=== PATIENT | female | born 1980 | race Hispanic/Latino ===

== ENCOUNTER 2016-08-03 02:42 | Inpatient (IN) | payer OTHER ==
[~2016-08-03] VITALS: Ht 172.7 cm; Wt 121.6 kg
--- NOTE | 2016-08-03 13:13 | Admission Core Measures ---
Admission Lab Results I reviewed the following labs: Laboratory Tests 08/03 1015 Urines Urine Test NEGATIVE Admission Meds I reviewed the following Meds: Current Medications Sig/Cori Start time Last Medication Dose Stop Time Status Admin Cefazolin Sodium 2,000 MG ONCE 08/03 0000 NR (Kefzol-Ancef Inj) 08/03 2358 Dexamethasone 10 MG ONCE 08/03 0000 NR (Decadron) 08/03 2358 Heparin Sodium 5,000 UNIT ONCE 08/03 0000 NR (Porcine) 08/03 2358 Acute Coronary Syndrome Inclusion Criteria ACS Diagnosis No Inpatient Core Measures LDL Reminder: If No, please order W/I first 24hr of stay Congestive Heart Failure Inclusion Criteria CHF Diagnosis No Cerebrovascular accident Inclusion Criteria CVA/TIA Diagnosis No Inpatient Core Measures Bedside Swallow Eval Reminder: If BSE failed, place ST order Antithrombotic Reminder: Order Antithrombotic Medication by end of day 2 Antithrombotic Reminder: Document Reason Antithrombotic Not ordered by end of day 2 AFIB/Flutter Reminder: If Present, add to problem list AFIB/Flutter Reminder: Order Anticoag Medication for pts with AFIB/Flutter Atherosclerosis Reminder: If Present, add to problem list LDL Reminder: If No, please order W/I first 24hr of stay PT Order Reminder: If No, please order Venous thromboembolism Inpatient Core Measures VTE Risk Factors: Obesity, Surgery [facility] prophylaxis d/t No contraindications No VTE Pharm Prophylaxis d/t No contraindications Inclusion Criteria - Per Current guidelines, there needs to be overlap - treatment for the first 5 days of Warfarin therapy. - Parenteral Anticoagulation (IV or SC) needs to be - given along with Warfarin therapy. VTE Diagnosis No VTE Type NONE VTE Confirmed by (Test) NONE Problem List As ranked by this Provider includes Assessment & Plan 1. S/P laparoscopic sleeve gastrectomy
[2016-08-03] MEDS ORDERED: PROTONIX40 M3 PO (14:40)
[2016-08-03] MEDS ORDERED: HYCET 7.5 MG-3473 ML PO (14:40)
--- NOTE | 2016-08-03 14:44 | Patient Discharge Instructions ---
Discharge Instructions General Discharge Information You were seen/treated for: Morbid obesity You had these procedures: Laparoscopic sleeve gastrectomy Watch for these problems: Significantly increased pain, nausea, or temperatures over 101 Increased redness or drainage from around the incisions Chest pain or difficulty breathing No bath, but you may shower: Yes Other wound care: When you get home he may remove dressings leaving white strips intact until seen by your surgeon Shower regularly and pat dry Special Instructions: See preprinted information booklet Diet Recommended Diet: Bariatric Activity Activity Self Limited: Yes Pounds, do NOT lift more than: 10 Other activity limits: Do not drive or operate heavy machinery until seen by your surgeon and off all pain medications Acute Coronary Syndrome Inclusion Criteria At DC or during hospital stay patient has or had the following: ACS DIAGNOSIS No Discharge Core Measures Meds if any: Prescribed or Continued at Discharge Meds if any: NOT Prescribed or Continued at Discharge Congestive Heart Failure Inclusion Criteria At DC or during hospital stay patient has or had the following: CHF DIAGNOSIS No Discharge Core Measures Meds if any: Prescribed or Continued at Discharge Meds if any: NOT Prescribed or Continued at Discharge Cerebrovascular accident Inclusion Criteria At DC or during hospital stay patient has or had the following: CVA/TIA Diagnosis No Discharge Core Measures Meds if any: Prescribed or Continued at Discharge Meds if any: NOT Prescribed or Continued at Discharge Venous thromboembolism Inclusion Criteria VTE Diagnosis No VTE Type NONE VTE Confirmed by (Test) NONE Discharge Core Measures - Per Current guidelines, there needs to be overlap - treatment for the first 5 days of Warfarin therapy. - If discharged on Warfarin prior to 5 days of - overlap therapy, the patient will need to be - assessed for post discharge needs including - *Post discharge parental anticoagulation - *Warfarin and/or parental anticoagulation education - *Follow up date to check INR post discharge At least 5 days overlap therapy as Inpatient No Meds if any: Prescribed or Continued at Discharge Note: Overlap Therapy is Warfarin and Anticoagulant Meds if any: NOT Prescribed or Continued at Discharge
--- NOTE | 2016-08-03 14:46 | Surg Short-stay <48hrs Dis Sum ---
Visit Information Visit Dates Admission Date: 08/03/16 Discharge Date: 08/05/16 Surgical Short Stay DC Summary Admission Diagnosis: Morbid obesity Final Diagnosis: Same Procedure(s): Laparoscopic sleeve gastrectomy Summary/Significant Findings: The patient was admitted on 08/03/2016. Later that day she was brought to the operating theater and underwent a laparoscopic sleeve gastrectomy. Postoperatively the patient's pain was under adequate control and she she tolerated a stage I diet without nausea. The patient was discharged with an uneventful hospital course. Condition at Discharge: Stable Discharge Disposition: home or self care Discharge instructions provided to patient/family: Yes Post discharge follow-up plan: Call the office to be seen in one week
--- NOTE | 2016-08-03 16:11 | Operative Report ---
Operative/Inv Procedure Report Surgery Date: 08/03/16 Name of Procedure: Laparoscopic Sleeve Gastrectomy Pre-Operative Diagnosis: Morbid obesity Post-Operative Diagnosis: same Estimated Blood Loss: less than 20cc Surgeon/Game Preserve Manager: KIRBY LUNDBERG,SYD Mccoy PA-C Anesthesia: general endotracheal tube, block IV Fluids: LR Implants: none Urine Output: na Drains: none Specimens: portion of stomach Complications: none Condition: stable Operative Indication: see admitting H and P Operative/Procedure Note Note: after informed consent and proper identification the pt was taken to the OR and placed on the table in the supine position. Venodyne stockings were placed and she then underwent general anesthesia. The pt had a MIKKI block we preped and drapped the abdomen in normal sterile fasion. Next we injected 0.5 % marcaine into the skin and subcutaneous tissue trocar sites. We entered the abdomen through a 12mm incision in the LUQ and used a Covidian optiveiw trocar and a 0-degree Storz 10mm scope. We insufflated with 14mm Hg CO2 pressure. We had excellent visualization. We inserted additional trocars. 2-5mm trocars in the left subcostal margin, a 5mm trocar in the right subcostal margin, and a 15mm Covidian trocar inthe right mid abdomen as well as a Linda retractor in the upper midline to retract the left lobe of the liver. We had anesthesia decompress the stomach with an orogastric tube and than remove it. We disected the vascular attachmens from the greater curve of the stomach using an ultrasonic scalpel, 6cm from the pylorus opposite the angularis and freeing up the fundus of the stomach from the left hira at the angle of His. We had excellent visualization. We now had anesthesia insert a 40FR bougie and using this as a guide we created the sleeve. We fired a Endo ALEXANDER stapler using 2 black 60mm cartridges with Seamguaurd followed by 3 60cm purple Cartridges with Seamguard to completely transect the remnant stomach from the newly created sleeve. Anesthesia removed the bougie intact and we removed the Linda liver retractor. We removed the resected stomach in a 15mm endocatch bag and closed the 15mm trocar site with a Weck trocar site closure device. All othe trocar removed under visualization and sponge and instrument counts were correct. we closed the incision sites with 4-0 Vicryl suture and applied steri-strips and dry sterile dressings. Findings: smooth liver, no hiatal hernia Discharge Disposition: PACU
[2016-08-03 16:50] VITALS: BP 124/72
--- NOTE | 2016-08-03 18:01 | PN- Bariatrics ---
Subjective Subjective: The patient was seen this evening postoperatively. She reports that her pain is under adequate control and has no other complaints at the current time. She is tolerating small amounts of a stage I diet without nausea. She denies any chest pain or difficulty breathing. Objective Vital Signs and I&Os Vital Signs Date Time Temp Pulse Resp B/P B/P Pulse O2 O2 Flow FiO2 Mean Ox Delivery Rate 08/03 1650 97.8 102 18 124/72 99 Room Air Physical Exam: Gen.: Alert and in no obvious distress Skin: Warm and dry Cardiac: S1 and S2 regular Pulmonary: Bilateral breath sounds are equal and slightly decreased at bases Abdomen: Soft, obese, appropriate incisional tenderness, bowel sounds positive. Surgical incisions are slightly blood-tinged but otherwise intact. Extremities: Bilateral lower extremities are warm without calf tenderness or significant edema. Assessment/Plan Assessment/Plan Assessment: 35-year-old female status post laparoscopic sleeve gastrectomy. Postoperatively patient is progressing as expected, her pain is under adequate control, she is tolerating a stage I diet without nausea. Plan: Stage I diet until midnight then NPO for an upper GI in the morning Continue IV fluids PRN pain medication and antiemetics Out of bed and ambulate GI and DVT prophylaxis Strict I's and O's Follow-up morning laboratory studies Incentive spirometry 2 doses of prophylactic postoperative antibiotics Core Measures/Miscellaneous Venous Thromboembolism VTE Risk Factors: Obesity, Surgery VTE Contraindications: No Contraindications VTE Diagnosis: No VTE Type: NONE VTE Confirmed by (Test): NONE [facility] Is [facility] a Home Med? No Antibiotics Is Patient on Antibiotics? Yes If Yes: prophylaxis
[2016-08-03 19:25] VITALS: BP 128/80
[2016-08-03 22:04] VITALS: BP 125/66
--- NOTE | 2016-08-04 06:42 | PN- Bariatrics ---
Subjective Subjective: Currently not nauseous. Last episode of n/v was around midnight. She was reluctant to walk yesterday because movement made her nausea worse. She reports "no pain", aside from some gas related discomfort. Currently npo awaiting upper gi study. No dizziness. No shortness of breath. No chest pains. Voiding well. No flatus yet. Objective Vital Signs and I&Os Vital Signs Date Time Temp Pulse Resp B/P B/P Pulse O2 O2 Flow FiO2 Mean Ox Delivery Rate 08/04 2203 98.6 84 18 125/66 98 Room Air 08/03 1925 98.2 101 20 128/80 92 08/03 1841 Room Air Room Air 08/03 1650 97.8 102 18 124/72 99 Room Air 08/03 1450 100 Room Air Intake & Output 08/04 0800 08/04 0000 08/03 1600 08/03 0800 08/03 0000 08/02 1600 Intake Total 1000 725 Output Total 700 610 Balance 300 115 Intake, IV 1000 625 Intake, Oral 100 Output, 310 Emesis Output, Urine 700 300 Patient 268 lb Weight Weight Reported by Patient Measurement Method Physical Exam: General - alert & oriented x 3. comfortable. no acute distress. Lungs - clear bilaterally. no w/r/r. Cardiac - s1s2. reg. Abdomen - soft. dressings c/d/i. no drains. expected andrade-incisional tenderness. Extremities - warm bilaterally. no c/c/e. calves soft and nontender b/l. Assessment/Plan Assessment/Plan This 35-year-old female is POD#1 s/p lap sleeve gastrectomy, post-op nausea / small hematemesis which has resolved overnight currently npo awaiting upper gi study decrease iv fluid rate f/u labs hep sc - dvt ppx protonix - gi ppx oob/ambulation andrade-operative antibiotics complete d/c planning will d/w Core Measures/Miscellaneous Venous Thromboembolism VTE Risk Factors: Obesity, Surgery VTE Contraindications: No Contraindications VTE Diagnosis: No VTE Type: NONE VTE Confirmed by (Test): NONE [facility] Is [facility] a Home Med? No Antibiotics Is Patient on Antibiotics? Yes If Yes: prophylaxis
[2016-08-04 06:45] VITALS: BP 132/65
[2016-08-04 08:04] LABS: ABSOLUTE BASOPHIL COUNT 0 /CUMM (0.0-0.2); ABSOLUTE EOSINOPHIL COUNT 0 /CUMM (0.0-0.7); ABSOLUTE GRANULOCYTE CT 11.6 /CUMM (1.4-6.5); ABSOLUTE LYMPH COUNT 0.9 /CUMM (1.2-3.4); ABSOLUTE MONOCYTE COUNT 0.7 /CUMM (0.10-0.60); BASOPHIL % 0 % (0.0-2.0); EOSINOPHIL % 0 % (0-5); GRANULOCYTE % 87.6 % (42.2-75.2); HEMATOCRIT 41.2 % (37-47); MEAN CORPUSCULAR HGB 29.1 PG (27.0-31.0); MEAN CORPUSCULAR HGB CONC 32.6 G/DL (33.0-37.0); MEAN CORPUSCULAR VOLUME 89.1 FL (81.0-99.0); MEAN PLATELET VOLUME 9.8 FL (7.4-10.4); PLATELET COUNT 233 /CUMM (130-400); RBC DISTRIBUTION WIDTH 13.5 % (11.5-14.5); RED BLOOD CELL CT 4.62 /CUMM (4.20-5.40)
[2016-08-04 09:00] LABS: WHITE BLOOD CELL COUNT 13.3 /CUMM (4.8-10.8)
--- NOTE | 2016-08-04 12:18 | RADIOLOGY REPORT ---
EXAMINATION: FLUOROSCOPY UPPER GI WITH GASTROGRAFIN AND KUB CLINICAL INFORMATION: 1 day status post gastric sleeve procedure. Postoperative evaluation. COMPARISON: None. TECHNIQUE: A preliminary rack washer view of the abdomen was performed followed by a limited Gastrografin upper GI study using 30 ml of Gastroview with the patient in the semiupright position. 7 spot films and 3 cine loop series were acquired. FINDINGS: The preliminary rack washer view of the abdomen performed demonstrates a drain in the epigastric region. Mild gaseous distention of bowel loops is seen without abnormal bowel distention seen. Esophageal distensibility and motility is normal. The GE junction is located below the level of the diaphragm. Mild GE reflux is seen. There is slow emptying of the ingested contrast from the gastric fundus into the gastric body, presumably related to spasm. Duodenal bulb and C-sweep are partially outlined and appear unremarkable. No contrast extravasation is seen. FLUOROSCOPY TIME: 53 seconds. IMPRESSION: Slow emptying of the contrast from the gastric fundus into the gastric body, presumably related to spasm. No evidence of contrast leak.
[2016-08-04 14:54] VITALS: BP 124/70
[2016-08-04 22:48] VITALS: BP 126/76
[2016-08-05 07:20] VITALS: BP 132/84
--- NOTE | 2016-08-05 12:45 | PN- Bariatrics ---
Subjective Subjective: Pain is well-controlled, no nausea vomiting or confusion and events overnight, no fever or flulike illness, she feels well and wants to be discharged home Objective Vital Signs and I&Os Vital Signs Date Time Temp Pulse Resp B/P B/P Pulse O2 O2 Flow FiO2 Mean Ox Delivery Rate 08/05 0720 98.7 78 10 132/84 97 Room Air 08/05 0700 97 08/04 2248 98.1 67 20 126/76 98 Room Air 08/04 2200 98 Room Air 08/04 1600 98 Room Air 08/04 1454 98.7 75 20 124/70 98 Room Air Intake & Output 08/05 1600 08/05 0800 08/05 0000 08/04 1600 08/04 0800 08/04 0000 Intake Total 600 1479 141 5948 725 Output Total 756 837 3722 610 Balance 600 350 235 -400 115 Intake, IV 600 920 486 0640 625 Intake, Oral 600 360 100 Output, 310 Emesis Output, Urine 665 859 2088 300 Patient 268 lb 268 lb Weight Weight Reported by Patient Measurement Method Physical Exam: Well-developed well-nourished no apparent distress. HEENT: Atraumatic, extraocular motion intact Neck: Supple, no lymphadenopathy Respiratory: No respiratory distress Abdomen: Incision clean dry and intact, abdomen soft and minimally tender in the epigastrium Extremities: No edema, no calf pain Neuro: Alert and oriented x3 Psych: Mood affect normal, normal memory normal judgment. Skin: Warm and dry, no rash on exposed skin Assessment/Plan Assessment/Plan This 35-year-old female is POD#2 s/p lap sleeve gastrectomy Upper GI study is negative Tolerating clears Pain controlled Stable for discharge home Continue stage I diet Core Measures/Miscellaneous Venous Thromboembolism VTE Risk Factors: Obesity, Surgery VTE Contraindications: No Contraindications VTE Diagnosis: No VTE Type: NONE VTE Confirmed by (Test): NONE [facility] Is Beta [facility] a Home Med? No Antibiotics Is Patient on Antibiotics? Yes If Yes: prophylaxis
[2016-08-05 14:59] VITALS: BP 134/98
== END 2016-08-05 14:19 | DRG 403 ==
LOC: 2NB 02:42 → SDA 02:42 → ENRESERV 14:50 → 2NB 16:48
PROVIDERS: Physician Assistant Surgical; ADMIT Surgery
PROC: 0DB64Z3 Excision of Stomach, Percutaneous Endoscopic Approach, Vertical (ICD-10-PCS; principal; 2016-08-03)
DX: E66.01 Morbid (severe) obesity due to excess calories (principal); Z68.41 Body mass index [BMI] 40.0-44.9, adult
CPT/HCPCS: 2NBSP; 74240; 81025; 82436; 88307; J0131; J0690; J1100; J1170; J1644; J1885; J2405; J2765; J3250; J7042; S5012